=== PATIENT | female | born 1995 | race Two or more races ===

== ENCOUNTER 2018-02-14 03:49 | Inpatient (IN) | payer MEDICAID ==
[~2018-02-14] VITALS: Ht 149.9 cm; Wt 122.5 kg
[2018-02-14 04:00] VITALS: BP 132/84; Ht 149.9 cm; Wt 122.5 kg
[2018-02-14] MEDS ORDERED: NIFEdipine 10 MG CAP PO ONE ×2 (04:40→04:41)
[2018-02-14] MEDS ORDERED: MAGNESIUM SULF 20 GM/500 ML IV 500 ML IV SCH (04:56)
[2018-02-14] MEDS ORDERED: BETAMETHASONE/ACETATE 6 MG/1ML IM ONE (05:00)
[2018-02-14] MEDS ORDERED: MAGNESIUM SUL* 4 GM/100 ML BAG 100 ML IVPB ONE (05:00)
[2018-02-14] MEDS ORDERED: LR(*) 1000 ML BAG 1,000 ML IV PRN (05:23)
[2018-02-14] MEDS ORDERED: PENICILLIN G 5 MILLUN/100 ML 100 ML ONE (05:36)
[2018-02-14] MEDS ORDERED: PENICILLIN G 5 MILLUN/100 ML 100 ML IVPB SCH (05:40)
[2018-02-14] MEDS ORDERED: PENICILLIN G 5 MILLUN/100 ML 100 ML IVPB ONE (05:50)
--- NOTE | 2018-02-14 05:57 | History & Physical ---
History of Present Illness EDC per U/S: Mar 31, 2017 Estimated Gestational Age: 33.4 Chief Complaint contractions, vaginal spotting History of Present Illness 23-year-old at 33w4d presents with contractions and vaginal spotting. She reports having some cramping starting at 1400hrs yesterday, but at 0300 this morning she developed more painful contractions. She also had some spotting with wiping and on her underwear this morning. She denies loss of fluid. She reports movement. No preeclampsia symptoms. I have no records available at this time. She reports moving to [place] one month ago from [place]. 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 She denies any complications this except for a history of delivery. She reports a 35wk and 33wk delivery in the past. She is not being treated with progesterone this . She moved here to [place] for her 's job. History Group B Strep Screen: Unknown Obstetrical History: G1: 35wk CHELE [place], 04/2015 (baby discharged at 2 days) G2: 33wk CHELE [place], 11/2016 (baby discharged at 3 days) G3: Current Past Medical History: PMH: None PSH: stefano Urias Allergies: Coded Allergies: No Known Drug Allergies (Unverified , 02/14/18) Social History: No T/E/D. . Review of Systems Constitutional: No Fever Eyes: No Vision Change Cardiovascular: No Chest Pain Respiratory: No Shortness of Breath, No Cough Gastrointestinal: No Nausea, No Vomiting, No Diarrhea Genitourinary: No Dysuria Musculoskeletal: No Pain Psychiatric: No Depression, No Anxiety Exam General Exam Vital Signs VS reviewed (BP 131/61, P 90, T 98.0) General Apperance: Alert/Awake/No Acute Distress Neuro: No Gross deficits Eyes: Normal Extraocular Movement & Vison Cardiovascular: Regular Rate and Rhythm Respiratory: No Respiratory Distress, Clear to Auscultation Abdomen: Gravid - Non-Tender : Normal Musculoskeletal: No Weakness/Pain Extremities: No Cyanosis,Clubbing or Edema Integumentary: Skin Intact without Lesions or Rash Psychological: Alert & Oriented X3, Appropriate Mood & Affect Cervical Dialation: 6 Cervical Effacement (%): 70 Cervical Consistency: Soft Cervical Position: Mid Station: -1 Presentation: Vertex Uterine Contractions(Q min): 3 Uterine Contraction Strength: Moderate UC Resting Tone: Soft Fetus Feeling Movement?: Yes FHT Category: I Medical Decision Making Imaging Ultrasound/Imaging Ultrasound shows anterior/fundal placenta; cephalic presentation; minimal amniot ic fluid Assessment and Plan Problems: (1) contractions Assessment & Plan: 23-year-old at 33w4d presents with contractions and vaginal spotting. Initially, we were preparing for transfer to [facility]. However, the patient has now changed from 4cm to 6cm since coming to L&D despite tocolytics. She did receive one bolus of magnesium, as we were preparing for this to be the tocolytic for transfer. The OB laborist at [facility] (Dr. Cruz) recommended stopping the magnesium due to gestational age. Steroids were given ~0520 and PCN was started ~0545hrs. She was given one dose of Procardia orally ~0500. She is showing some bloody show. I discussed with the patient that due to her cervical change, it is not safe to transfer her at this point. Will still hope to get some latency with Procardia and the magnesium bolus, but if not will prepare for management after delivery. The patient is aware the baby is likely to need to be transferred after delivery. (2) 33 weeks gestation of INGRID GIVENS MD Feb 14, 2018 05:26
[2018-02-14] MEDS ORDERED: PREN-127 PO (05:58)
--- NOTE | 2018-02-14 06:15 | RADIOLOGY IMAGING REPORT ---
FACILITY: [facility] [place] PATIENT NAME: Megan Adams : 1995 MR: [id number] V: [id number] EXAM DATE: ORDERING PHYSICIAN: INGRID GIVENS TECHNOLOGIST: Location: [facility] [place] Patient: Megan Adams : 1995 Visit/Account:[id number] Date of Sevice: 02/14/2018 Limited OB ultrasound Indication: labor. Evaluate placental location and position. Reported gestational age 3 3 weeks 4 days. Comparison: None available FINDINGS: Intrauterine gestations: one presentation: Cephalic heart rate: 146 bpm Placenta: Anterior. No image demonstrates the placental edge in relation to the internal os. IMPRESSION: 1. Single live intrauterine gestation in the cephalic position. 2. Anterior placenta. Report Dictated By: Matthew Sorto at 02/14/2018 6:05 AM Report E-Signed By: Matthew Sorto at 02/14/2018 6:11 AM [id number]
[2018-02-14 06:26] LABS: PLATELET COUNT, AUTOMATED 167 K/uL (150-450)
[2018-02-14] MEDS ORDERED: fentaNYL CITR 100 MCG/2 ML AMP IVP ONE (06:30)
[2018-02-14] MEDS ORDERED: OXYTOCIN 30 UNIT/D5LR 500 ML 500 ML IV PRN ×2 (06:31→12:04)
[2018-02-14] MEDS ORDERED: FAMOTIDINE(*) 20MG/50ML PREMIX 50 ML IVPB PRN (06:31)
[2018-02-14] MEDS ORDERED: ceFAZolin(*) 2GM/D5W 50ML 50 ML IVPB PRN (06:31)
[2018-02-14] MEDS ORDERED: METOCLOPRAMIDE 10 MG/2 ML SDV IVP PRN (06:35)
[2018-02-14] MEDS ORDERED: FLUSH 10 ML SYR IVP PRN (06:35)
--- NOTE | 2018-02-14 06:47 | Labor Progress Note ---
Labor Subjective Progress Notes Subjective Pt is feeling more pressure and more painful contractions. Labor Objective Cervical Dialation: 7 Cervical Effacement (%): 70 Cervical Consistency: Soft Cervical Position: Mid Station: -1 Presentation: Vertex Uterine Contractions(Q min): 3 Uterine Contraction Strength: Strong Fetus FHT Category: I General Exam General Appearance: Alert/Awake/No Acute Distress Respiratory: No Respiratory Distress Abdomen: Gravid - Non-Tender : Normal Musculoskeletal: No Weakness/Pain Extremities: No Cyanosis,Clubbing or Edema Integumentary: Skin Intact without Lesions or Rash Psychological: Alert & Oriented X3, Appropriate Mood & Affect Assessment and Plan Problems: (1) contractions Assessment & Plan: Pt is at 7cm now but feeling more pressure. Will monitor for cervical change. (2) 33 weeks gestation of INGRID GIVENS MD Feb 14, 2018 06:47
[2018-02-14] MEDS ORDERED: CALFACTANT/NACL 0.9% 210MG/6ML ONE (07:08)
[2018-02-14] MEDS ORDERED: fentaNYL CITR 100 MCG/2 ML AMP ONE (08:39)
--- NOTE | 2018-02-14 08:50 | OB Delivery Note ---
Delivery Note Vaginal Delivery Type: Spont. Vaginal Delivery Delivery Date: Feb 14, 2018 Delivery Time: 08:37 Estimated Gestational Age(wks): 33.4 Labor Stage III (minutes): 2 Delivery Anesthesia: IV Opiate Infant Sex: Female Weight (gms): 2070 Estimated Blood Loss: 200 Notes: PTL at 33w4d by 14wk US. Given procardia 20mg, betamethasone 12mg (~0520), PCN, mag x 4g. She progressed despite tocolytics. Came in at 0451 at 4cm and was complete at 0833hrs. Delivery of viable female at 0837hrs. Vigorous and spontaneous cry. Cord clamped at 50 seconds. Baby taken to warmer. Placenta delivered spontaneously. No lacerations. Spinning Frame Changer in Attendence: Yes (Dr. Dsouza) Copies to: BRENT ULTHER MD ; INGRID GIVENS MD Feb 14, 2018 08:50
[2018-02-14] MEDS ORDERED: IBUP800T37 PO (08:53)
[2018-02-14] MEDS ORDERED: ACETAMINOPHEN 325 MG TAB PO PRN (08:55)
[2018-02-14] MEDS ORDERED: APAP/HYDROCODONE 325/5 TAB PO PRN (08:55)
[2018-02-14] MEDS ORDERED: GLYCERIN/WITCH HAZEL LEAF 1 PK TP PRN (08:55)
[2018-02-14] MEDS ORDERED: BENZOCAINE 20% 60 ML BTL TP PRN (08:55)
[2018-02-14] MEDS ORDERED: LANOLIN OINT 7 GM TUBE TP PRN (08:55)
[2018-02-14] MEDS ORDERED: MAGNESIUM HYDROXIDE* 30ML UDCP PO PRN (08:55)
[2018-02-14] MEDS ORDERED: HYDROCORTISONE 2.5% CR 30GM TB PR PRN (08:55)
[2018-02-14] MEDS ORDERED: DOCUSATE CALCIUM 240 MG CAP PO SCH (09:00)
[2018-02-14] MEDS: IBUPROFEN 800 MG TAB PO SCH ×2 (09:27→16:43)
[2018-02-14 09:33] VITALS: BP 139/63
[2018-02-14 10:46] VITALS: BP 159/70
[2018-02-14 12:12] VITALS: BP 124/66
[2018-02-14 15:16] VITALS: BP 124/57
[2018-02-14 18:12] VITALS: BP 138/78
[2018-02-14] MEDS ORDERED: ENOXAPARIN 40 MG/0.4ML SYR SC SCH (19:00)
[2018-02-15] MEDS ORDERED: MEASLES,MUMP,RUBELLA VAC 0.5ML SUBQ ONE (09:00)
[2018-02-15] MEDS ORDERED: INFLUENZA VIRUS VAC 0.5ML SYR IM ONLY ONE (09:00)
[2018-02-15] MEDS ORDERED: DIPHTH/TETANUS/ACEL. PERTUSSIS IM ONLY ONE (09:00)
--- NOTE | 2018-02-16 14:15 | DELIVERY NOTE ---
DATE OF PROCEDURE: February 14, 2018 SURGEON: Aisha Jeffery MD ANESTHESIA: None. PREOPERATIVE DIAGNOSES 1. Intrauterine at 33 weeks and 4 days. 2. Spontaneous labor. POSTOPERATIVE DIAGNOSES 1. Intrauterine at 33 weeks and 4 days. 2. Spontaneous labor. 3. Delivery of a viable female at 0837 hours weighing 2070 grams, and is unavailable. PROCEDURE Spontaneous vaginal delivery. ESTIMATED BLOOD LOSS 200 mL. INDICATIONS FOR PROCEDURE This patient is a 23-year-old 3, para 0-2-0-2, who presented at 33 weeks and 4 days by reported estimated due date by first trimester ultrasound with contractions and vaginal spotting. She reported cramping that started at 1400 hours on 02/13/2018, which progressed to painful contractions. She then developed severely painful contractions at 0300 hours prior to arrival. She arrived on the unit and was evaluated at 0451 hours at which time she was 4 cm dilated, 50% effaced, and -1 station. She was ananda every five to seven minutes. She was administered Procardia orally initially without any relief in her contractions. During that time, labs were drawn as well as initiation of betamethasone 12 mg at 0509 hours. Magnesium 4 g bolus was started at 0508 hours and administered. Penicillin was also started at 0550 hours. The patient continued to progress and was noted to be 6 cm, 70% effaced, and -1 station at 0542 hours. Due to this rapid change in cervix, it was determined she would not be appropriate to transfer and leave here. Therefore, the pediatric team was assembled and informed and prepared for delivery of a 33-week . Please note the records were not available during her labor nor at the time of this dictation. However, she did report having routine care, and verbally, we did get reports of her normal labs from her clinic in [place]. The patient continued to progress. She did receive one dose of Fentanyl at 0641 hours at this time she was 7 cm dilated, 70% effaced, and -1 station. She continued to progress to complete at 0833 hours and was allowed to push. PROCEDURE Patient was properly identified. She was placed in the dorsal lithotomy position. She was noted to be complete and feeling the urge to push. She was allowed to push and brought the infant's vertex to the perineum. The amniotic sac spontaneously ruptured at that time. Shortly thereafter, the vertex was delivered in the OA position over an intact perineum. Nuchal cord was checked, but not noted. The anterior shoulder delivered easily followed by the posterior shoulder. The remainder of the was easily delivered. The infant did have spontaneous crying, spontaneous movement of all four extremities. She was quite vigorous at the time of delivery. Therefore, the was passed to mother's abdomen where Dr. Dsouza was in attendance as well as Angy Shelley. The was stimulated and dried. The oropharynx and nasopharynx were both suctioned. The 's cord was clamped after 50 seconds and cut. The infant was then taken to the warmer with Dr. Dsouza, which also started the IV fluid to help firm the uterus. The placenta subsequently delivered spontaneously intact at 0839 hours. The fundus palpated firm at that time. The cervix, vaginal wall, and perineum were evaluated and revealed no lacerations. The patient tolerated this procedure well and recovered in Labor and Delivery. Her infant was taken to the nursery and prepared for transport due to status. HU
== END 2018-02-14 18:25 | disposition home or self-care (01) | DRG 807 ==
LOC: OB 03:49
PROVIDERS: ADMIT Obstetrics & Gynecology; ATTEND Obstetrics & Gynecology
PROC: 10E0XZZ Delivery of Products of Conception, External Approach (ICD-10-PCS; principal; 2018-02-14)
DX: O60.23X1 Term delivery with preterm labor, third trimester, fetus 1 (principal); Z37.0 Single live birth; Z3A.33 33 weeks gestation of pregnancy
CPT/HCPCS: 36415; 76815; 82040; 82247; 82310; 82374; 82435; 82565; 82947; 84075; 84132; 84155; 84295; 84450; 84460; 84520; 85025; 86703; 86850; 86900; 86901; 88307; 90707; J0702; J2540; J2590; J3010; J3475; J7120

== ENCOUNTER 2018-05-29 23:24 | Emergency (ER) | payer MEDICAID ==
[2018-02-14 04:00] VITALS: Wt 114.8 kg
[~2018-05-29 23:24] MED LIST: IBUP800T37 PO; PREN-127 PO
--- NOTE | 2018-05-29 23:28 | ER Report ---
History and Physical Time Seen By MD: 23:28 HPI/ROS CHIEF COMPLAINT: Vaginal spotting, 6 weeks HISTORY OF PRESENT ILLNESS: 23-year-old female G4, P3 female at 6 weeks began having abdominal cramping 2 hours prior to arrival in the ER. She had some vaginal spotting just prior to arrival. She had premature delivery at 33 weeks in 03/02. Patient's had no prior OB care with this . REVIEW OF SYSTEMS: Respiratory: No cough, no dyspnea. Cardiovascular: No chest pain, no palpitations. Gastrointestinal: As above Musculoskeletal: No back pain. Allergies: Coded Allergies: No Known Drug Allergies (Unverified , 05/30/18) Home Meds Active Scripts Ondansetron 4 Mg Odt (ONDANSETRON 4 MG ODT) 4 Mg Tab.rapdis, 4 MG PO Q6H PRN for NAUSEA/VOMITING, #15 TAB Prov:HEIDY RIDLEY DO 05/30/18 Ibuprofen (IBUPROFEN) 800 Mg Tablet, 1 TAB PO Q8H PRN for pain, #30 TAB 0 Refills TAKE WITH FOOD EVERY 8 HOURS Prov:INGRID GIVENS MD 02/14/18 Reported Medications Vits W-Ca,Fe,Fa(<1MG) ( VITAMINS) 1 Each Tablet, 1 EACH PO DAILY, TAB 02/14/18 Reviewed Nurses Notes: Yes Old Medical Records Reviewed: Yes Hx Smoking: No Smoking Status: Never Smoker Exposure to Second Hand Smoke?: No Constitutional Vital Sign - Last 24 Hours 05/29/18 05/29/18 05/29/18 05/30/18 23:29 23:31 23:54 00:24 Temp 98.2 Pulse 81 80 72 Resp 14 15 18 B/P (MAP) 114/51 114/51 (72) Pulse Ox 94 96 O2 Delivery Room Air 05/30/18 05/30/18 05/30/18 05/30/18 00:54 00:59 01:00 01:05 Pulse 81 76 71 B/P (MAP) 111/50 (70) Pulse Ox 94 96 84 05/30/18 05/30/18 01:30 01:35 Pulse 69 B/P (MAP) 100/45 (63) Pulse Ox 94 Intake and Output 05/29/18 05/29/18 05/30/18 14:59 22:59 06:59 Intake Total 800 ml Balance 800 ml Physical Exam General Appearance: The patient is alert, has no immediate need for airway protection and no current signs of toxicity. I'll signs stable, afebrile, pulse ox normal Eyes: Pupils equal and round no injection. Respiratory: Chest is non tender, lungs are clear to auscultation. Cardiac: regular rate and rhythm Gastrointestinal: Abdomen is soft, mild suprapubic tenderness no masses, bowel sounds normal. Musculoskeletal: Neck: Neck is supple and non tender. Extremities have full range of motion and are non tender. Skin: No rashes or lesions. DIFFERENTIAL DIAGNOSIS: After history and physical exam differential diagnosis was considered for vaginal bleeding including but not limited to ectopic , menses, miscarriage, and dysfunctional uterine bleeding. Medical Decision Making Data Points Result Diagram: 05/30/18 0010 05/30/18 0010 Laboratory Hematology Test 05/30/18 00:10 Red Blood Count 4.93 M/uL (4.17-5.56) Mean Corpuscular Volume 82.2 fL (80.0-96.0) Mean Corpuscular Hemoglobin 27.0 pg (26.0-33.0) Mean Corpuscular Hemoglobin Concent 32.9 g/dL (32.0-36.0) Red Cell Distribution Width 15.1 % (11.5-14.5) Mean Platelet Volume 10.0 fL (7.2-11.1) Neutrophils (%) (Auto) 66.7 % (39.4-72.5) Lymphocytes (%) (Auto) 24.8 % (17.6-49.6) Monocytes (%) (Auto) 6.0 % (4.1-12.4) Eosinophils (%) (Auto) 2.3 % (0.4-6.7) Basophils (%) (Auto) 0.2 % (0.3-1.4) Nucleated RBC Relative Count (auto) 0.0 /100WBC Neutrophils # (Auto) 7.2 K/uL (2.0-7.4) Lymphocytes # (Auto) 2.7 K/uL (1.3-3.6) Monocytes # (Auto) 0.7 K/uL (0.3-1.0) Eosinophils # (Auto) 0.3 K/uL (0.0-0.5) Basophils # (Auto) 0.0 K/uL (0.0-0.1) Nucleated RBC Absolute Count (auto) 0.00 K/uL Prothrombin Time 13.4 seconds (12.0-14.4) Prothromb Time International Ratio 1.02 Activated Partial Thromboplast Time 35 seconds (23-35) Sodium Level 138 mmol/L (137-145) Potassium Level 3.9 mmol/L (3.5-5.0) Chloride Level 102 mmol/L (98-107) Carbon Dioxide Level 26 mmol/L (22-31) Blood Urea Nitrogen 13 mg/dl (7-18) Creatinine 0.50 mg/dl (0.52-1.04) Glomerular Filtration Rate Calc > 60.0 Random Glucose 109 mg/dl (75-110) Calcium Level 9.1 mg/dl (8.4-10.2) Total Bilirubin 0.8 mg/dl (0.2-1.3) Aspartate Amino Transf (AST/SGOT) 27 U/L (0-35) Alanine Aminotransferase (ALT/SGPT) 33 U/L (0-56) Alkaline Phosphatase 87 U/L (0-126) Total Protein 8.0 g/dl (6.3-8.2) Albumin 4.4 g/dl (3.5-5.0) Human Chorionic Gonadotropin, Qual Positive (NEGATIVE) Human Chorionic Gonadotropin, Quant 46044 mIU/ml Chemistry Test 05/30/18 00:10 White Blood Count 10.9 k/uL (4.5-11.0) Red Blood Count 4.93 M/uL (4.17-5.56) Hemoglobin 13.3 g/dL (12.0-16.0) Hematocrit 40.5 % (34.0-47.0) Mean Corpuscular Volume 82.2 fL (80.0-96.0) Mean Corpuscular Hemoglobin 27.0 pg (26.0-33.0) Mean Corpuscular Hemoglobin Concent 32.9 g/dL (32.0-36.0) Red Cell Distribution Width 15.1 % (11.5-14.5) Platelet Count 275 K/uL (150-450) Mean Platelet Volume 10.0 fL (7.2-11.1) Neutrophils (%) (Auto) 66.7 % (39.4-72.5) Lymphocytes (%) (Auto) 24.8 % (17.6-49.6) Monocytes (%) (Auto) 6.0 % (4.1-12.4) Eosinophils (%) (Auto) 2.3 % (0.4-6.7) Basophils (%) (Auto) 0.2 % (0.3-1.4) Nucleated RBC Relative Count (auto) 0.0 /100WBC Neutrophils # (Auto) 7.2 K/uL (2.0-7.4) Lymphocytes # (Auto) 2.7 K/uL (1.3-3.6) Monocytes # (Auto) 0.7 K/uL (0.3-1.0) Eosinophils # (Auto) 0.3 K/uL (0.0-0.5) Basophils # (Auto) 0.0 K/uL (0.0-0.1) Nucleated RBC Absolute Count (auto) 0.00 K/uL Prothrombin Time 13.4 seconds (12.0-14.4) Prothromb Time International Ratio 1.02 Activated Partial Thromboplast Time 35 seconds (23-35) Glomerular Filtration Rate Calc > 60.0 Calcium Level 9.1 mg/dl (8.4-10.2) Total Bilirubin 0.8 mg/dl (0.2-1.3) Aspartate Amino Transf (AST/SGOT) 27 U/L (0-35) Alanine Aminotransferase (ALT/SGPT) 33 U/L (0-56) Alkaline Phosphatase 87 U/L (0-126) Total Protein 8.0 g/dl (6.3-8.2) Albumin 4.4 g/dl (3.5-5.0) Human Chorionic Gonadotropin, Qual Positive (NEGATIVE) Human Chorionic Gonadotropin, Quant 36538 mIU/ml Coagulation Test 05/30/18 00:10 Prothrombin Time 13.4 seconds Prothromb Time International Ratio 1.02 Activated Partial Thromboplast Time 35 seconds EKG/Imaging Imaging Results: Ultrasound of the transvaginal ultrasound was obtained. The results of the study are 1st trimester obstetric ultrasound Comparison: 02/14/2018 History: VAGINAL BLEEDING LMP: Unknown. Gestational age based on LMP: Unknown. Findings: Standard endovaginal obstetric ultrasound with color flow and spectral analysis. Uterus: Based on a crown-rump length of 5 mm, gestational age is 6 weeks, 2 days. heart rate is 117 beats per minute. Adnexa: Right ovary: 2.5 x 2.4 x 1.0 cm Left ovary: 2.7 x 2.6 x 1.7 cm No suspicious mass. Normal blood flow. Probable corpus luteum in the left ovary. Free fluid: None Urinary bladder: Negative. IMPRESSION: Live intrauterine with no emergent findings. The study was read by the radiologist. I viewed the images myself on the PACS system. ED Course/Re-evaluation Clinical Indication for ER IV: Hydration, IV Access ED Course Patient was admitted to an examination room. H&P was done. The differential di agnoses was considered. Patient had a ultrasound performed which showed an intact IUP at 6 weeks with no emergent signs by ultrasound. Patient's vital signs were stable. She improved with IV fluids and Zofran. She is advised to follow-up with [facility]. She is cautioned return for heavy bleeding one pad per hour for 3 hours straight. Patient states she'll follow-up with Dr. Lira this next week. Decision to Disposition Date: May 30, 2018 Decision to Disposition Time: 00:59 Depart Departure Latest Vital Signs Vital Signs Date Time Temp Pulse Resp B/P (MAP) Pulse Ox O2 Delivery O2 Flow Rate FiO2 05/30/18 01:35 69 94 05/30/18 01:30 100/45 (63) 05/30/18 00:24 18 05/29/18 23:29 98.2 Room Air Impression: Primary Impression: Vaginal spotting Additional Impression: 6 weeks gestation of Condition: Improved Disposition: HOME OR SELF-CARE Referrals: BRENT LIRA MD New Scripts Ondansetron 4 Mg Odt (ONDANSETRON 4 MG ODT) 4 Mg Tab.rapdis 4 MG PO Q6H PRN for NAUSEA/VOMITING, #15 TAB Prov: HEIDY RIDLEY DO 05/30/18 Patient Instructions: Threatened Miscarriage (ED) Additional Instructions: Follow-up with Dr. Lira for OB care Problem Qualifiers HEIDY RIDLEY DO May 29, 2018 23:28
[2018-05-29] MEDS ORDERED: NS(*) 0.9% 1000 ML BAG 1,000 ML IV ONE (23:30)
[2018-05-30] MEDS ORDERED: ONDANSETRON 4 MG/2 ML VIAL IVP ONE
[2018-05-30 00:40] LABS: PLATELET COUNT, AUTOMATED 275 K/uL (150-450)
--- NOTE | 2018-05-30 01:28 | RADIOLOGY IMAGING REPORT ---
FACILITY: [facility] PATIENT NAME: Megan Adams : 1995 MR: [id number] V: [id number] EXAM DATE: ORDERING PHYSICIAN: HEIDY RIDLEY TECHNOLOGIST: Location: [facility] Patient: Megan Adams : 1995 Visit/Account:[id number] Date of Sevice: 05/29/2018 1st trimester obstetric ultrasound Comparison: 02/14/2018 History: VAGINAL BLEEDING LMP: Unknown. Gestational age based on LMP: Unknown. Findings: Standard endovaginal obstetric ultrasound with color flow and spectral analysis. Uterus: Based on a crown-rump length of 5 mm, gestational age is 6 weeks, 2 days. heart rate is 117 beats per minute. Adnexa: Right ovary: 2.5 x 2.4 x 1.0 cm Left ovary: 2.7 x 2.6 x 1.7 cm No suspicious mass. Normal blood flow. Probable corpus luteum in the left ovary. Free fluid: None Urinary bladder: Negative. IMPRESSION: Live intrauterine with no emergent findings. Report Dictated By: Yevgeniy Mai MD at 05/30/2018 1:21 AM Report E-Signed By: Yevgeniy Mai MD at 05/30/2018 1:24 AM [id number]
[2018-05-30 01:30] VITALS: BP 100/45
[2018-05-30] MEDS ORDERED: ONDA4TAB9 PO (01:32)
[2018-05-30 01:53] LABS: INR 1.02
== END 2018-05-30 01:45 | disposition home or self-care (01) ==
LOC: ER 23:30
DX: O20.9 Hemorrhage in early pregnancy, unspecified (principal); Z3A.01 Less than 8 weeks gestation of pregnancy
CPT/HCPCS: 36415; 76817; 84702; 84703; 85025; 85610; 85730; 86850; 86900; 86901; 96361; 96374; 99284; J2405; J7030; 82040; 82247; 82310; 82374; 82435; 82565; 82947; 84075; 84132; 84155; 84295; 84450; 84460; 84520